=== PATIENT | female | born 1985 | race Hispanic/Latino ===

== ENCOUNTER 2016-10-11 20:11 | Emergency (ER) | payer OTHER ==
[2016-10-11 20:12] VITALS: BMI 24.5
[2016-10-11 20:34] VITALS: RESP 16; TEMP 98.6
[2016-10-11 20:50] LABS: BASO # 0.02 K/mm3 (0.0-2.0); BASO % 0.2 % (0.0-3.0); EOS % 0.3 % (1.5-5.0); GRAN % 78.4 % (50.0-68.0); HEMOGLOBIN 11.8 gm/dL (12.0-16.0); MEAN CORPUSCULAR HEMOGLOBIN 31.2 pg (25.0-35.0); MEAN CORPUSCULAR HGB CONC 34.3 g/dl (31.0-37.0); MEAN PLATELET VOLUME 11.5 fl (7.0-11.0); MONO # 0.8 (0.1-0.6); MONO % 6.1 % (1.0-6.0); PLATELET COUNT 292 10^3/uL (120.0-450.0); RBC 3.78 10^6/uL (3.5-6.1); RED CELL DISTRIBUTION WIDTH 12.8 % (11.5-14.5)
[2016-10-11 21:45] LABS: ALB/GLOB RATIO 1.3 (1.1-1.8); ALBUMIN 3.9 g/dL (3.0-4.8); ALT/SGPT 35 U/L (7-56); AST/SGOT 21 U/L (15-39); BLOOD UREA NITROGEN 10 mg/dL (7-21); CALCIUM 8.7 mg/dL (8.4-10.5); GFR AFRICAN-AMERICAN > 60; GFR NON-AFRICAN AMERICAN > 60; MAGNESIUM 2.1 mg/dL (1.7-2.2)
[2016-10-11 22:00] VITALS: BP 119/68; PULSE 85; O2SAT 99
[2016-10-11 22:13] LABS: TROPONIN I < 0.01 ng/mL
--- NOTE | 2016-10-11 22:21 | ED PDOC ---
Arrival/HPI - General Chief Complaint: Chest Pain Time Seen by Provider: 10/11/16 20:20 Historian: Patient - History of Present Illness Narrative History of Present Illness (Text): 10/11/16 22:24 31 yo F with no significant PMH only anxiety, c/o 3 day h/o constant R sided CP described as a "heavy sensation inside," reports a mild cough, and yesterday had a short episode of dyspnea, which pt thought was related to her anxiety, but resolved after taking a walk to calm her down. Otherwise reports no other associated symptoms. Reports no alleviating or exacerbating factors. Denies any dizziness, headache, diaphoresis, palpitations, SOB, abd pain, N/V, radiation, association with exertion, pleuritic component, recent travel, leg pain / swelling, taking OCPs, h/o smoking, trauma, injury, prior symptoms in the past. Of note, pt states that she is currently on prednisone for her ears, which was Rx by her ENT. PMD Hugo Past Medical History - Provider Review Nursing Documentation Reviewed: Yes - Infectious Disease Hx of Infectious Diseases: None - HEENT Other/Comment: ear tubes - Psychiatric Hx Substance Use: No - Surgical History Hx Tonsillectomy: Yes Other/Comment: ear tubes - Anesthesia Hx Anesthesia: Yes Hx Anesthesia Reactions: No Hx Malignant Hyperthermia: No Family/Social History - Physician Review Nursing Documentation Reviewed: Yes Family/Social History: Diabetes Smoking Status: Never Smoked Hx Alcohol Use: No Hx Substance Use: No Allergies/Home Meds Allergies/Adverse Reactions: Allergies Penicillins Allergy (Verified 10/11/16 20:12) RASH Home Medications: Home Meds Medication Instructions Recorded Confirmed No Known Home Med 10/11/16 10/11/16 Physical Exam Vital Signs Reviewed: Yes Vital Signs Temp Pulse Resp BP Pulse Ox 10/11/16 21:59 85 16 119/68 99 10/11/16 20:33 98.6 F 88 16 130/88 100 Temperature: Afebrile Blood Pressure: Normal Pulse: Regular Respiratory Rate: Normal Appearance: Positive for: Well-Appearing, Non-Toxic, Comfortable Pain Distress: None Mental Status: Positive for: Alert and Oriented X 3 - Systems Exam Head: Present: Atraumatic, Normocephalic Pupils: Present: PERRL Extroacular Muscles: Present: EOMI Mouth: Present: Moist Mucous Membranes Neck: Present: Normal Range of Motion. No: MIDLINE TENDERNESS, Paraspinal Tenderness Respiratory/Chest: Present: Clear to Auscultation, Good Air Exchange. No: Respiratory Distress, Accessory Muscle Use, Wheezes, Rales, Rhonchi, Tachypneic , Tender to Palpation Cardiovascular: Present: Regular Rate and Rhythm, Normal S1, S2. No: Murmurs Abdomen: No: Tenderness, Distention, Rebound, Guarding Back: Present: Normal Inspection. No: CVA Tenderness, Midline Tenderness Upper Extremity: Present: Normal Inspection, Normal ROM, NORMAL PULSES. No: Edema, Swelling Lower Extremity: Present: Normal Inspection, NORMAL PULSES, Normal ROM, Neurovascularly Intact, Capillary Refill < 2 s. No: Edema, CALF TENDERNESS, Fabian's Sign, Tenderness, Swelling, Erythema, Deformity, Temperature Abnormalties Neurological: Present: GCS=15, CN II-XII Intact Skin: Present: Warm, Dry, Normal Color. No: Rashes Psychiatric: Present: Alert, Oriented x 3 Medical Decision Making ED Course and Treatment: 10/11/16 22:15 31 yo F with no significant PMH, c/o 3 day h/o R sided CP with no other associated symptoms. Based on history and exam, likely musculoskeletal pain, to r/o PE, or pneumonia. Plan: - Labs - IV - EKG - CXR - Troponin / D-dimer - Reassess / disposition EKG: NSR at 94 bpm, normal axis, (-) acute ST changes, as read by WILLIE CXR: NAD as read by PA Lab results reviewed, WBC is mildly elevated, trop is (-), d-dimer is (-), rest of the labs are wnl. On re-evaluation, pt is resting in bed comfortably in no acute distress, breathing is easy and unlabored. She reports no SOB, dyspnea or CP at this time. Diagnostic results d/w the pt in great detail, advised to f/u elevated WBC with her pmd/ENT, likely due to her recent intake of prednisone. VSS. Otherwise instructed to f/u with pmd in 1-2 days without fail. Instructed to return to the ER at any time for any new or worsening symptoms. Pt verbalize understanding of diagnosis, treatment and plan, agrees with outpt follow up. - Lab Interpretations Lab Results: 10/11/16 20:30 10/11/16 20:30 Lab Results 10/11/16 20:30: D-Dimer, Quantitative 0.19 10/11/16 20:30: Sodium 140, Potassium 4.1, Chloride 104, Carbon Dioxide 28, Anion Gap 12, BUN 10, Creatinine 0.6, Est GFR ( Amer) > 60, Est GFR (Non- Af Amer) > 60, Random Glucose 98, Calcium 8.7, Magnesium 2.1, Total Bilirubin 0.3, AST 21, ALT 35, Alkaline Phosphatase 75, Lactate Dehydrogenase 370, Total Creatine Kinase 50, Troponin I < 0.01, Total Protein 6.7, Albumin 3.9, Globulin 2.9, Albumin/Globulin Ratio 1.3 10/11/16 20:30: WBC 13.0 H, RBC 3.78, Hgb 11.8 L, Hct 34.4 L, MCV 91.0, MCH 31.2 , MCHC 34.3, RDW 12.8, Plt Count 292, MPV 11.5 H, Gran % 78.4 H, Lymph % (Auto) 15.0 L, Vilas % (Auto) 6.1 H, Eos % (Auto) 0.3 L, Baso % (Auto) 0.2, Gran # 10.20 H, Lymph # 2.0, Vilas # 0.8 H, Eos # 0.0, Baso # 0.02 - RAD Interpretation Radiology Orders: 10/11/16 20:35 CHEST PORTABLE [RAD] Stat - PA / CORRECTIONAL OFFICER / Resident Statement MD/DO has reviewed & agrees with the documentation as recorded. Disposition/Present on Arrival - Present on Arrival Any Indicators Present on Arrival: No History of DVT/PE: No History of Uncontrolled Diabetes: No Urinary Catheter: No History of Decub. Ulcer: No History Surgical Site Infection Following: None - Disposition Have Diagnosis and Disposition been Completed?: Yes Diagnosis: Chest pain Disposition: HOME/ ROUTINE Disposition Time: 22:15 Patient Plan: Discharge Condition: STABLE Discharge Instructions (ExitCare): Chest Pain (ED) Print Language: FAROESE Additional Instructions: Follow up with pmd in 1-2 days without fail. Return to the ER at any time for any new or worsening symptoms. Forms: WORK NOTE
--- NOTE | 2016-10-12 10:21 | RAD ---
HISTORY: R sided CP COMPARISON: No prior. FINDINGS: LUNGS: No active pulmonary disease. PLEURA: No significant pleural effusion identified, no pneumothorax apparent. CARDIOVASCULAR: Normal. OSSEOUS STRUCTURES: No significant abnormalities. VISUALIZED UPPER ABDOMEN: Normal. OTHER FINDINGS: None. IMPRESSION: No active disease.
--- NOTE | 2016-10-12 11:34 | CARD ---
APPROVED REPORT EKG Measurement Heart [id number] <Conclusion> Normal sinus rhythm Normal ECG
== END 2016-10-11 22:47 | disposition home or self-care (01) ==
LOC: MERGE 20:11 → ED 20:11
DX: R07.9 Chest pain, unspecified (principal); Z88.0 Allergy status to penicillin